=== PATIENT | male | born 2000 | race Hispanic/Latino ===

== ENCOUNTER 2018-03-25 09:37 | Emergency (ER) | payer OTHER ==
[2018-03-25] MEDS ORDERED: Lidocaine 1% PF 5 ML VIAL ONE (10:22)
--- NOTE | 2018-03-25 11:00 | RAD ---
THREE VIEWS OF THE RIGHT SMALL DIGIT OF THE FOOT: INDICATION: History of right foot pain. COMPARISON: None. FINDINGS: There is soft tissue swelling of the right small digit. There are some radiopaque densities within t he soft tissues overlying the dorsal aspect of the DIP joint of left small digit suspicious for a sma ll radiopaque foreign body. This also may reflect some topical-type radiopaque ointment on the skin of the patient. IMPRESSION: 1. No acute osseous abnormality. 2. Patchy areas of punctate radiodensity within the soft tissues overlying the right small digit dig ital interphalangeal joint which may reflect either topical ointment or possibly a radiopaque foreign body. Recommend correlation. POS: [facility]
[2018-03-25] MEDS ORDERED: Bacitracin Zinc Ointment 30 gm TUBE ONE (12:07)
[2018-03-25] MEDS ORDERED: Bacitracin Zinc 1 Packet ONE (12:08)
--- NOTE | 2018-03-25 12:19 | RAD ---
RIGHT LITTLE TOE 3 VIEWS: HISTORY: Evaluation for foreign body. FINDINGS: There appears to be soft tissue injury of the little toe. Adjacent to this is what is probably a sma ll ossified density. There is some subtle irregularity to the base of the distal phalanx of the william le toe. I suspect that this is related to an older avulsion injury rather than a radiopaque foreign body. It has more of an ossified appearance on this examination than on the earlier study. IMPRESSION: The density seen in the soft tissues is felt to probably represent an avulsive-type injury from the b ase of the distal phalanx of the little toe on these views. It has more of a bony appearance on this study and there is slight defect seen in the base of the distal phalanx. This could be related to o ld versus new injury. POS: [facility]
== END 2018-03-25 12:19 | disposition home or self-care (01) ==
LOC: SCSER 09:37
DX: S91.114A Laceration without foreign body of right lesser toe(s) without damage to nail, initial encounter (principal); W20.8XXA Other cause of strike by thrown, projected or falling object, initial encounter
CPT/HCPCS: 12001; J2001

== ENCOUNTER 2018-04-08 17:58 | Emergency (ER) | payer OTHER | END 2018-04-08 18:30 | disposition home or self-care (01) | LOC: SCSER 17:58 | DX: S91.114D Laceration without foreign body of right lesser toe(s) without damage to nail, subsequent encounter (principal); X58.XXXD Exposure to other specified factors, subsequent encounter ==